=== PATIENT | female | born 2000 | race Hispanic/Latino ===

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

== ENCOUNTER 2018-08-31 22:39 | Emergency (ER) | payer MEDICAID ==
[2018-08-31 22:49] VITALS: BMI 29.8
[2018-08-31 22:51] VITALS: RESP 18
[2018-08-31] MEDS ORDERED: Sodium Chloride 0.9% 1,000 ML IV STA (23:19)
[2018-08-31 23:59] LABS: BASO # 0.02 K/mm3 (0.0-2.0); BASO % 0.1 % (0.0-3.0); EOS # 0.1 (0.0-0.7); EOS % 0.5 % (1.5-5.0); HEMOGLOBIN 14.2 g/dL (12.0-16.0); LYMPH # 2.4 (1.2-3.4); MEAN CELL VOLUME 90.7 fl (80.0-105.0); MEAN CORPUSCULAR HEMOGLOBIN 30.7 pg (25.0-35.0); MEAN CORPUSCULAR HGB CONC 33.8 g/dl (31.0-37.0); MEAN PLATELET VOLUME 10.5 fl (7.0-11.0); MONO # 1.4 (0.1-0.6); MONO % 8.1 % (1.0-6.0); RBC 4.63 10^6/uL (3.5-6.1); RED CELL DISTRIBUTION WIDTH 13.2 % (11.5-14.5); WHITE BLOOD COUNT 17.3 10^3/uL (4.5-11.0)
[2018-09-01] LABS: URINE BILIRUBIN SMALL (NEGATIVE); URINE BLOOD NEGATIVE (NEGATIVE); URINE GLUCOSE (UA) NEGATIVE (NEGATIVE); URINE LEUKOCYTE ESTERASE NEGATIVE Leu/uL (NEGATIVE); URINE PROTEIN 100 mg/dL (<30 mg/dL); URINE UROBILINOGEN 0.2 E.U./dL (<1 E.U./dL)
[2018-09-01 00:04] LABS: URINE APPEARANCE CLEAR (CLEAR); URINE COLOR YELLOW (YELLOW)
[2018-09-01 00:05] LABS: ALB/GLOB RATIO 1.3 (1.1-1.8); ALBUMIN 4.4 g/dL (3.0-4.8); ALT/SGPT 26 U/L (7-56); AST/SGOT 32 U/L (14-36); BLOOD UREA NITROGEN 10 mg/dL (7-21); CALCIUM 9.1 mg/dL (8.4-10.5); GFR NON-AFRICAN AMERICAN > 60
[2018-09-01 00:19] LABS: URINE BACTERIA OCC /hpf; URINE CALCIUM OXALATE CRYSTALS FEW /hpf; URINE RBC 0 - 2 /hpf (0-2); URINE WBC 0 - 2 /hpf (0-6)
[2018-09-01 00:22] LABS: TROPONIN I < 0.01 ng/mL
[2018-09-01 00:30] LABS: BARBITURATES, UR NEGATIVE (NEGATIVE); BENZODIAZEPINES, UR NEGATIVE (NEGATIVE); OPIATES, UR NEGATIVE (NEGATIVE); PHENCYCLIDINE, UR NEGATIVE (NEGATIVE)
--- NOTE | 2018-09-01 01:16 | ED PDOC ---
Arrival/HPI - General Chief Complaint: Abnormal Skin Integrity Time Seen by Provider: 08/31/18 22:57 Historian: Patient - History of Present Illness Narrative History of Present Illness (Text): 09/01/18 01:28 18yr old female presents today brought in by her father for syncopal episode. Patient states she walked over to her father and told him that she did not feel well. He states she started to stumble backwards and she started to fell to the ground and her father was able to catch her but she still hit her head. Patient states she hit her head sustaining a laceration. patients father states that the patient was able to answer all questions and at no point was she completely unconscious. pt states she felt like she was in a dream. Patient admits to smoking marijuana today and states that she did not eat all day. The incident occurred around 9 PM. The patient and her father states that after the incident occurred she went to eat tacos. Patient was brought to the emergency room for a laceration of the right upper eyelid. Patient denies headaches dizziness or weakness. She denies chest pain or shortness of breath. She denies fevers or chills. No urinary symptoms. No abdominal pain. No other complaints. Past Medical History - Provider Review Nursing Documentation Reviewed: Yes - Travel History Have you recently traveled outside [place] w/in the past 3 mons?: No - Past History Past History: No Previous - Infectious Disease Hx of Infectious Diseases: None - Tetanus Immunization Tetanus Immunization: Up to Date - Cardiac Hx Cardiac Disorders: No - Pulmonary Hx Respiratory Disorders: No - Neurological Hx Neurological Disorder: No - HEENT Hx HEENT Disorder: No - Renal Hx Renal Disorder: No - Endocrine/Metabolic Hx Endocrine Disorders: No - Hematological/Oncological Hx Blood Disorders: No - Integumentary Hx Dermatological Disorder: No - Musculoskeletal/Rheumatological Hx Musculoskeletal Disorders: No - Gastrointestinal Hx Gastrointestinal Disorders: No - Genitourinary/Gynecological Hx Genitourinary Disorders: No - Psychiatric Hx Psychophysiologic Disorder: Yes Hx Anxiety: Yes Hx Substance Use: No - Past Surgical History Past Surgical History: No Previous - Suicidal Assessment Feels Threatened In Home Enviroment: No Family/Social History - Physician Review Nursing Documentation Reviewed: Yes Family/Social History: Unknown Family HX Smoking Status: Never Smoked Hx Alcohol Use: No Hx Substance Use: No Hx Substance Use Treatment: No Allergies/Home Meds Allergies/Adverse Reactions: Allergies No Known Allergies Allergy (Verified 08/31/18 22:49) Home Medications: Home Meds Medication Instructions Recorded Confirmed No Known Home Med 12/04/11 08/31/18 Review of Systems - Review of Systems Constitutional: absent: Fatigue, Fevers Eyes: absent: Vision Changes, Photophobia, Eye Pain ENT: absent: Sore Throat, Sinus Congestion Respiratory: absent: SOB, Cough Cardiovascular: absent: Chest Pain, Palpitations Gastrointestinal: absent: Abdominal Pain, Constipation, Diarrhea, Nausea, Vomiting Genitourinary Female: absent: Dysuria, Frequency, Hematuria Musculoskeletal: absent: Arthralgias, Back Pain, Neck Pain Skin: Laceration. absent: Pruritis Neurological: absent: Headache, Dizziness Psychiatric: absent: Anxiety, Depression Physical Exam Vital Signs Reviewed: Yes Vital Signs Temp Pulse Resp BP Pulse Ox 08/31/18 22:49 98.6 F 76 18 98/54 L 95 Temperature: Afebrile Blood Pressure: Normal Pulse: Regular Respiratory Rate: Normal Appearance: Positive for: Well-Appearing, Non-Toxic, Comfortable Pain Distress: None Mental Status: Positive for: Alert and Oriented X 3 - Systems Exam Head: Present: Swelling, Laceration (there is a 2cm linear laceration noted to the right upper eyelid. no active bleeding. minimal edema. no tenderness. no step offs. no bony tenderness) Pupils: Present: PERRL Extroacular Muscles: Present: EOMI Conjunctiva: Present: Normal Ears: Present: Normal, NORMAL TM Mouth: Present: Moist Mucous Membranes Pharnyx: Present: Normal Nose (External): Present: Atraumatic Nose (Internal): Present: Normal Inspection Neck: Present: Normal Range of Motion, Trachea Midline. No: MIDLINE TENDERNESS, Paraspinal Tenderness Respiratory/Chest: Present: Clear to Auscultation, Good Air Exchange. No: Respiratory Distress, Accessory Muscle Use Cardiovascular: Present: Regular Rate and Rhythm, Normal S1, S2. No: Murmurs Abdomen: No: Tenderness, Distention, Peritoneal Signs, Rebound, Guarding Back: Present: Normal Inspection. No: Midline Tenderness, Paraspinal Tenderness Upper Extremity: Present: Normal ROM Lower Extremity: Present: Normal ROM Neurological: Present: GCS=15, Speech Normal, Motor Func Grossly Intact, Normal Sensory Function Skin: Present: Warm, Dry, Normal Color Psychiatric: Present: Alert, Oriented x 3 Medical Decision Making ED Course and Treatment: 09/01/18 01:32 18-year-old female with a witnessed syncopal episode at home sustaining head injury. Wound was irrigated with normal saline using high pressure irrigation. Tetanus is up-to-date. Laceration repair with Dermabond. CBC White blood cell count 17.3 CMP within normal limits Troponin within normal limits EKG: Normal sinus rhythm with sinus arrhythmia at 94 bpm normal axis no ST elevations QTC 422 cxr; wnl head CT: FINDINGS: BRAIN No acute intraparenchymal hemorrhage. No mass lesion. No CT evidence for acute territorial infarct. No midline shift or extra-axial collections. VENTRICLES: No hydrocephalus. ORBITS: The orbits are unremarkable. SINUSES AND MASTOIDS: The paranasal sinuses and mastoid air cells are clear. BONES: No fracture. SOFT TISSUES: Unremarkable. IMPRESSION: No acute intracranial abnormality. Electronically signed on Sep 01, 2018 12:36:09 AM EDT by: Zeus Valerio M.D., Certified by ABR, MSK, Neuroradiology 09/01/18 01:41 pt reassessment; pt is non toxic well appearing; no distress. stable vitals. denies any complaints. all results discussed with patient and her father in depth. advised f/u with PMD and aerospace project manager tomorrow. advised immediate return if symptoms worsen, persist or if new symptoms develop. case discussed with dr. woodward in depth; impression; near syncope increase fluids Follow-up with the primary care physician tomorrow Follow-up with a aerospace project manager within the next 2 days Return immediately if symptoms worsen persist or if new concerning symptoms develop - Lab Interpretations Lab Results: Troponin I < 0.01 ng/mL 08/31/18 23:36 Total Bilirubin 0.3 mg/dL (0.2-1.3) 08/31/18 23:36 AST 32 U/L (14-36) 08/31/18 23:36 ALT 26 U/L (7-56) 08/31/18 23:36 Alkaline Phosphatase 59 U/L (38-126) 08/31/18 23:36 Total Protein 7.7 g/dL (5.8-8.3) 08/31/18 23:36 Albumin 4.4 g/dL (3.0-4.8) 08/31/18 23:36 Globulin 3.3 gm/dL 08/31/18 23:36 Albumin/Globulin Ratio 1.3 (1.1-1.8) 08/31/18 23:36 Urine Color Yellow (YELLOW) 08/31/18 23:28 Urine Appearance Clear (CLEAR) 08/31/18 23:28 Urine pH 6.0 (4.7-8.0) 08/31/18 23:28 Ur Specific [place] >= 1.030 (1.005-1.035) 08/31/18 23:28 Urine Protein 100 mg/dL (<30 mg/dL) H 08/31/18 23:28 Urine Glucose (UA) Negative mg/dL (NEGATIVE) 08/31/18 23:28 Urine Ketones Trace mg/dL (NEGATIVE) H 08/31/18 23:28 Urine Blood Negative (NEGATIVE) 08/31/18 23:28 Urine Nitrate Negative (NEGATIVE) 08/31/18 23:28 Urine Bilirubin Small (NEGATIVE) H 08/31/18 23:28 Urine Urobilinogen 0.2 E.U./dL (<1 E.U./dL) 08/31/18 23:28 Ur Leukocyte Esterase Negative [place]/uL (NEGATIVE) 08/31/18 23:28 Urine RBC 0 - 2 /hpf (0-2) 08/31/18 23:28 Urine WBC 0 - 2 /hpf (0-6) 08/31/18 23:28 Ur Epithelial Cells 3 - 4 /hpf (0-5) 08/31/18 23:28 Calcium Oxalate Crystal Few /hpf (NONE) 08/31/18 23:28 Urine Bacteria Occ /hpf (NONE) 08/31/18 23:28 - RAD Interpretation Radiology Orders: 08/31/18 23:18 HEAD W/O CONTRAST [CT] Stat - Medication Orders Current Medication Orders: Discontinued Medications Sodium Chloride (Sodium Chloride 0.9%) 1,000 mls @ 999 mls/hr IV .Q1H1M STA Stop: 09/01/18 00:19 Last Admin: 08/31/18 23:41 Dose: 999 mls/hr eMAR Start Stop Document 08/31/18 23:41 IT (Rec: 08/31/18 23:41 IT [facility] [id number] Intravenous Solution Start Date 08/31/18 Start Time 23:41 Procedure: Wound Repair - Procedure Procedure: Wound Repair: right eyelid laceration - Consent Obtained Consent obtained: Verbal - Performed by Performed by: Mid-level Provider - Indications Indication(s):: Laceration - Location Location:: Right (upper eyelid) Shape:: Linear Dimensions Length cm: 2cm Depth:: Epidermis - Debris Debris:: None - Irrigated Irrigated with ml of normal saline: copious amounts of NS using high pressure irrigation - Complexity Complexity:: Simple (one layer) - Wound repair method [place]:: Tissue glue - Complications Complications: none - Patient tolerated procedure Patient Tolerated Procedure:: Well Disposition/Present on Arrival - Present on Arrival Any Indicators Present on Arrival: No History of DVT/PE: No History of Uncontrolled Diabetes: No Urinary Catheter: No History of Decub. Ulcer: No History Surgical Site Infection Following: None - Disposition Have Diagnosis and Disposition been Completed?: Yes Diagnosis: Near syncope Disposition: HOME/ ROUTINE Disposition Time: 01:43 Patient Plan: Discharge Patient Problems: Current Active Problems Problem Status Onset Near syncope Acute Condition: GOOD Discharge Instructions (ExitCare): Near Fainting (DC) Additional Instructions: increase fluids Follow-up with the primary care physician tomorrow Follow-up with a aerospace project manager within the next 2 days Return immediately if symptoms worsen persist or if new concerning symptoms develop Referrals: Luis Bar MD [Staff Provider] - Follow up with primary Annette Sanchez MD [Medical Doctor] - Follow up with primary Executive Administrative [employer] [Outside] - Follow up with primary Forms: [employer] ([place]), WORK NOTE
[2018-09-01 01:39] VITALS: BP 120/85; PULSE 89; TEMP 98.5; O2SAT 99
--- NOTE | 2018-09-01 09:27 | RAD ---
Date of service: 09/01/2018 HISTORY: syncope COMPARISON: No prior. FINDINGS: LUNGS: No active pulmonary disease. PLEURA: No significant pleural effusion identified, no pneumothorax apparent. CARDIOVASCULAR: No aortic atherosclerotic calcification present. Normal cardiac size. No pulmonary vascular congestion. OSSEOUS STRUCTURES: No significant abnormalities. VISUALIZED UPPER ABDOMEN: Normal. OTHER FINDINGS: None. IMPRESSION: No active disease.
--- NOTE | 2018-09-01 09:57 | CT ---
Date of service: 08/31/2018 PROCEDURE: CT HEAD WITHOUT CONTRAST. HISTORY: syncope, head injury COMPARISON: None available. TECHNIQUE: Axial computed tomography images were obtained through the head/brain without intravenous contrast. Radiation dose: Total exam DLP = 801.45 mGy-cm. This CT exam was performed using one or more of the following dose reduction techniques: Automated exposure control, adjustment of the mA and/or kV according to patient size, and/or use of iterative reconstruction technique. FINDINGS: HEMORRHAGE: No intracranial hemorrhage. BRAIN: No mass effect or edema. No atrophy or chronic microvascular ischemic changes. VENTRICLES: Unremarkable. No hydrocephalus. CALVARIUM: Unremarkable. PARANASAL SINUSES: Unremarkable as visualized. No significant inflammatory changes. MASTOID AIR CELLS: Unremarkable as visualized. No inflammatory changes. OTHER FINDINGS: None. IMPRESSION: Normal CT of the Head.
--- NOTE | 2018-09-01 17:19 | CARD ---
APPROVED REPORT Date of service: 08/31/2018 EKG Measurement Heart [id number] <Conclusion> Normal sinus rhythm with sinus arrhythmia Normal ECG
== END 2018-09-01 01:54 | disposition home or self-care (01) ==
LOC: ED 22:39
DX: R55 Syncope and collapse (principal)
CPT/HCPCS: 70450; 71045; 80053; 80324; 80345; 80346; 80349; 80353; 80358; 80361; 81001; 81025; 82550; 83615; 83992; 84484; 85025; 93005; 99283; J7030